=== PATIENT | female | born 1975 | race Caucasian/White ===

== ENCOUNTER 2025-01-29 10:23 | Emergency (ER) | payer OTHER, SELFPAY ==
--- OUTSIDE RECORDS SUMMARY | 2025-01-29 10:32 | XMS_ITS | Patient Health Record ---
Author Organization [facility] Address [address] [place] [address] Care Team Providers Care Errand Runner Name Role Phone Milagros eVga Primary Care Provider [phone] Reason For Referral No Information Problems Problem Type SNOMED Code ICD Code Onset Dates Problem Status W/U Status Risk Notes Problem Depression (151066361) Depression (F32.9) Active confirmed Plan Of Treatment No Information Insurance Providers Payer Name Payer Address Payer Phone Subscriber Number Group Number Insured Name Patient Relationship to Insured Coverage Start Date Coverage End Date [facility] [address] [place] [address] [id number] Regina Medina Self - patient is the insured 2
--- OUTSIDE RECORDS SUMMARY | 2025-01-29 10:32 | XMS_ITS | Clinical Summary ---
Author Organization [facility] Address [address] [place] [phone] Care Team Providers Care Vocational Nursing Instructor Name Role Phone Ese Main MD Unavailable [phone] Bria Willams NP Primary Care Provider [phone] Allergies Active Allergy Reactions Criticality Noted Date Comments Penicillin Unknown 04/22/2024 Penicillin V Unknown 06/26/2023 Reaction in childhood. Unsure of reaction Medications escitalopram (LEXAPRO) 10 mg tablet Take 1 tablet (10 mg total) by mouth daily 04/10/2024 Active multivitamin-min erals-lutein tablet Take by mouth Active Active Problems Problem Noted Date Diagnosed Date Breast cancer screening, high risk patient 04/22 Encounter for screening for malignant neoplasm o f colon 11/07/2023 Chest pain, unspecified type 09/19/2023 Family history of breast cancer 06/26/2023 Encounter for nonprocreative genetic counseling and testing 06/26/2023 Encounter for screening mammogram for breast can cer 06/26/2023 Immunizations Immunization Administration Dates Next Due Influenza, Quadrivalent, Gladys l Culture-based MDCK, Preservative Free, Antibiotic Free, Intramuscular 03/23/2023 Influenza, Quadrivalent, Spl it, Preservative Free, Intramuscular 12/12/2021 Tetanus Toxoid, Unspecified 05/02/2021 Surgical History Surgery Date Site/Laterality Comments SECTION APPENDECTOMY COLONOSCOPY 11/13/2023 UPPER GASTROINTESTINAL ENDOSCOPY 11/13/2023 Medical History Medical History Date Comments Known health problems: none GERD (gastroesophageal reflux disease) Chest pain 09/18/2023 Obesity Family History Medical History Relation Name Comments Lung cancer Father Breast cancer Mother pre-menopausal Relation Name Status Comments Father Maternal Grandfather Maternal Grandmother Mother Paternal Grandfather Paternal Grandmother Social History Tobacco Use Types Packs/Day Years Used Date Smoking Tobacco: Never Smokeless Tobacco: Never AUDIT-C Answer Date Recorded Frequency of Alcohol Consumption Not on file 11/13/2023 Q2: How many drinks containi ng alcohol do you have on a typical day when you are drinking? Patient does not drink Frequency of Binge Drinking Not on file 11/02 Personal Safety Answer Date Recorded Have you ever been in or are you currently in a harmful physical or emotional relationship or is someone making you feel afraid or unsafe? Denies 11/13/2023 Comments No Sex and Gender Information Value Date Recorded Sex Assigned at Not on file Legal Sex Female 3:05 PM BOAT RIGGER Gender Identity Not on file Sexual Orientation Not on file Obstetrics History Para Term AB IAB SAB Ectopic Multiple Livin g Live Births 1 03 04 Date Outcome GA Total Labor Labor/2nd/3rd Weight Sex Type Anes PTL Maty A1 A5 Name Clin Term Last Filed Vital Signs Vital Sign Reading Time Taken Comments Blood Pressure 128/81 06/25/2024 8:10 AM CDT Pulse 68 06/25/2024 8:10 AM CDT Temperature 36.7 C (98 F) 04/22/2024 8:16 AM BOAT RIGGER Respiratory Rate 18 04/22/2024 8:16 AM BOAT RIGGER Oxygen Saturation 96% 04/22/2024 8:16 AM BOAT RIGGER Inhaled Oxygen Concentration - - Weight 139.3 kg (307 lb) 06/25/2024 8:10 AM CDT Height 180.3 cm (5' 11) 06/25/2024 8:10 AM CDT Body Mass Index 42.82 06/25/2024 8:10 AM CDT Plan of Treatment Health Maintenance Due Date Last Done Comments Cervical Cancer Screening 1975 Depression Screening 1975 Hepatitis C Screening 1976 DTaP/Tdap/Td Vaccine (1 - Tdap) 1987 Hepatitis B Screening 1994 Regular Well Visit/Exam 18-64 1994 Covid-19 Vaccine ( season) 2024 03/23/2023, 12/12/2021, 01/20/2021, Additional history exists Influenza Vaccine (#1) 2024 03/23/2023, 2021 Breast Cancer Screening-Mammogram 04/22/2025 04/22/2024, 04/18/2023 Colon Cancer Screening-Colonoscopy 11/12/2033 11/13/2023 Pneumococcal vaccine <65 Aged Out No longer eligible based on patient's age to complete this topic Procedures Procedure Name Priority Date/Time Associated Diagnosis Comments SCREENING MAMMOGRAM BILATERAL W SREE Schedule Routine, Read Routine (OP Routine) 04/22/2024 7:34 AM BOAT RIGGER Encounter for screening mammogram for breast cancer Breast cancer screening by mammogram COLONOSCOPY 11/13/2023 7:30 AM CDT from Last 3 Months or Most Recently Relevant to Health Maintenance Results * Screening Mammogram Bilateral W Sree (04/22/2024 7:34 AM BOAT RIGGER) Anatomical Region Laterality Modality Breast Bilateral Mammography Impressions 04/22/2024 8:16 AM BOAT RIGGER BI-RADS ATLAS category (overall): 1 - Negative There is no mammographic evidence of malignancy. A 1 year screening mammogram is recommended. The patient has been or will be contacted. We recommend annual screening mammography for women at average risk of breast cancer beginning at age 40, based on guidelines of the [employer] (ACR Practice Parameter for the Performance of Screening and Diagnostic Mammography) and [employer]. For women with and elevated risk of breast cancer, please refer to the ACR Practice Parameter for specific screening recommendations. The patient will be entered into a reminder system with a target due date of 1 year for her next screening exam. Narrative 04/22/2024 8:16 AM BOAT RIGGER Screening Mammogram Bilateral W Sree: 04/22/24 The study was acquired using full field digital technology and interpreted from soft copy. 2D digital mammographic views, as well as 3D digital tomosynthesis were performed in the CC and MLO projections. This study was resulted using Computer-Aided Detection (CAD). CLINICAL: Encounter for screening mammogram for breast cancer Breast cancer screening by mammogram. No relevant medical history has been documented for this patient. History of breast cancer in Mother. COMPARISONS: 10/14/2023 MRI Breast Bilateral W WO Contrast 05/22/2023 US Breast Right Limited 05/22/2023 Diagnostic Mammogram Right W Sree 04/18/2023 Screening Mammogram Bilateral W Sree BREAST TISSUE: There are scattered areas of fibroglandular density. FINDINGS: No suspicious masses, suspicious calcifications, or other suspicious findings are seen within either breast. There has been no suspicious change. Ese Main MD IMG MAMMO PROCEDURES Final Result * Colonoscopy (11/13/2023 7:30 AM CDT) Anatomical Region Laterality Modality Other Narrative Procedure Note Reynaldo Cavazos MD - 11/13/2023 7:30 AM CDT [facility] Endoscopy [facility] Patient Name: Emelyn Medina Procedure Date: 11/13/2023 7:30 AM Date of : 1975 Admit Type: Outpatient Age: 48 Gender: Female Note Status: Finalized Attending MD: Reynaldo Cavazos M.D. Procedure Date: 11/13/2023 Procedure: Colonoscopy Indications: Screening for colorectal malignant neoplasm Providers: Reynaldo Cavazos M.D., AMANDO Marte(Anesthesia Staff), Lida Jefferson RN, Selena Rodrigues,Slubber Operator Referring MD: Alvaro Mccord M.D. Medicines: Monitored Anesthesia Care Complications: No immediate complications. Estimated blood loss:None. Estimated Blood Loss: Estimated blood loss: none. Procedure: Pre-Anesthesia Assessment: - Prior to the procedure, a History and Physicalwas performed, and patient medications and allergieswere reviewed. The patient's tolerance of previous anesthesia was also reviewed. The risks andbenefits of the procedure and the sedation options and risks were discussed with the patient. All questions were answered, and informed consent was obtained. Prior Anticoagulants: The patient has taken noanticoagulant or antiplatelet agents. ASA Grade Assessment: II -A patient with mild systemic disease. After reviewing the risks and benefits, the patient was deemed in satisfactory condition to undergo the procedure. - The risks and benefits of the procedure and the sedation options and risks were discussed with the patient. All questions were answered and informed consent was obtained. After I obtained informed consent, the scope was passed under direct vision. Throughout theprocedure, the patient's blood pressure, pulse, and oxygen saturations were monitored continuously. The scopewas passed under direct vision. The Colonoscope was introduced through the anus and advanced to the the cecum, identified by appendiceal orifice andileocecal valve. The colonoscopy was performed without difficulty. The patient tolerated the procedurewell. The quality of the bowel preparation was excellent. The quality of the bowel preparation was evaluated using the BBPS (Tatum Bowel Preparation Scale)with scores of: Right Colon = 3, Transverse Colon = 3and Left Colon = 3 (entire mucosa seen well with no residual staining, small fragments of stool oropaque liquid). The total BBPS score equals 9. Theileocecal valve, appendiceal orifice, and rectum were photographed. The bowel preparation used wasGoLYTELY via extended prep (2 day prep) with split dose instruction on the second day. Findings: Hemorrhoids were found on perianal exam. The lumen of the colon (entire examined portion) was mildlydilated. External hemorrhoids were found during retroflexion. A 2 mm polyp was found in the transverse colon. The polyp wassessile. The polyp was removed with a jumbo cold forceps. Resection andretrieval were complete. Impression: 1) A 2 mm sessile polyp was found in the transverse colon. The polyp was removed with a jumbo cold forceps. Resection and retrieval were complete. 2) Mildly dilated lumen throughout the entireexamined colon. 3) External hemorrhoids. Recommendation: - Discharge patient to home (ambulatory). - Given symptoms of chronic constipation, Irecommend that the patient take Miralax daily titrated to 1-2 BM/day. - Patient has a contact number available for emergencies. The signs and symptoms of potential delayed complications were discussed with thepatient. Return to normal activities tomorrow. Written discharge instructions were provided to thepatient. - Resume previous diet. - Continue present medications. - Await pathology results. - Repeat colonoscopy for surveillance based on pathology results. If the pathology report reveals adenomatous tissue, then repeat the colonoscopy for surveillance in 7 years. If the pathology report reveals serrated adenoma tissue, then repeat the colonoscopy for surveillance in 5 years. If the pathology report is benign, then repeat colonoscopy for screening purposes in 10 years. Procedure Code(s): --- Professional --- 66692, Colonoscopy, flexible; with biopsy, singleor multiple Diagnosis Code(s): --- Professional --- Z12.11, Encounter for screening for malignantneoplasm of colon K64.4, Residual hemorrhoidal skin tags K59.39, Other megacolon CPT copyright 2020 [employer]. All rights reserved. The codes documented in this report are preliminary and upon porter used car lot reviewmay be revised to meet current compliance requirements. Reynaldo Cavazos M.D. 11/13/2023 8:50:59 AM Number of Addenda: 0 Note Initiated On: 11/13/2023 7:30 AM Reynaldo Cavazos MD ENDOSCOPY PROCEDURES Edit ed Result - Final from Last 3 Months or Most Recently Relevant to Health Maintenance Insurance [id number] [place] [id number] [facility] PPO [id number] [facility] HMO Advance Directives For more information, please contact: [phone] * Full Code (Latest Code Status on File) Date Activated Date Inactivated Comments 09/19/2023 2:52 PM 09/20/2023 10:57 PM Care Teams Vocational Nursing Instructor Relationship Specialty Start Date End Date Bria Willams NP [address] [place] [address] PCP - General Nurse Practitioner 10/19/24 Ese Main MD Surgeon Breast Surgery 04/03/23
--- OUTSIDE RECORDS SUMMARY | 2025-01-29 10:32 | XMS_ITS | Patient Health Record ---
Author Organization [facility] Billing Info Address [address] [place] [id number] Support Name Relationship Address Phone Lenin Medina Emergency Contact [address] [place] [phone] Emelyn Medina Guarantor Unknown Allergies Allergen (clinical drug ingredient) Drug/Non Drug Allergy documented on EMR Reaction Allergy Type Onset Date Status Penicillin Unknown Drug Allergy Active Reason For Referral No Information Plan Of Treatment No Information Insurance Providers Payer Name Payer Address Payer Phone Subscriber Number Group Number Insured Name Patient Relationship to Insured Coverage Start Date Coverage End Date [place] P[place] [address] [place], [place] [id number] [phone] [id number] Emelyn Medina Self - patient is the insured Medical (General) History Surgical History Surgery Date(Month/Year) appendix
--- OUTSIDE RECORDS SUMMARY | 2025-01-29 10:32 | XMS_ITS | Encounter Summary ---
Author Organization [facility] Address [address] [place] [address] Phone Care Team Providers Care Chief Guard Name Role Phone Bria Willams NP Primary Care Provider [phone] Ese Main MD Unavailable [phone] Alvaro Mccord MD Primary Care Provider [phone] Bria Willams NP Primary Care Provider [phone] Encounter Details Date Type Department Care Team (Late st Contact Info) Description 04/02/2023 Telephone [facility] Oncology [facility] 7th [address] [place] [address] Lisa Friedman Social History Tobacco Use Types Packs/Day Years Used Date Smoking Tobacco: Never Assessed Personal Safety Answer Date Recorded Getting School Help Needed Not on file 03/22 Comments Unknown Sex and Gender Information Value Date Recorded Sex Assigned at Not on file Legal Sex Female 3: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 [place] [address] PCP - General Family Medicine 04/17/23 10/18/24 Bria Willams NP [address] [place] [address] PCP - General Nurse Practitioner 10/19/24 Ese Main MD [address] [place] [address] Surgeon Breast Surgery 04/03/23 documented as of this encounter
[2025-01-29 10:45] VITALS: BP 124/61; PULSE 79; RESP 18; TEMP 36.7; O2SAT 97
--- NOTE | 2025-01-29 10:57 | ED.URI ---
HPI - URI/Sore Throat General Chief Complaint: Upper Respiratory Infection Stated Complaint: Uri Symptoms Source: patient Mode of arrival: ambulatory Limitations: no limitations History of Present Illness HPI Narrative: this is a 49-year-old female patient who presents to the urgent care today with complaint of 1.5 week history upper respiratory symptoms, sinus congestion, cough, sore throat. Denies fever chills however they state over the last week patient seems to have a more productive cough and fatigue. Patient denies any nausea or vomiting denies any headache or dizziness. According to parents patient has been taking Tylenol for relief and cough cold medications with minimal help. Denies any other distress or concerns. discussed findings on exam, and time and outpatient treatment. Discussed that we will continue with antibiotic and prednisone treatment. The need to continue with [id number] management of symptoms. Answered questions to their satisfaction agreeable plan. Educated patient and parents to increase fluids, rest, cough and cold medication as tolerated, cough drops and vicks vapor rub, take antibiotic as prescribed. prednisone as prescribed. Follow up with your primary MD in the next 3-4 days, return to the urgent care or emergency department if any worrisome sign or symptom. MD elicited complaint: cough, sore throat, rhinorrhea, nasal congestion and sinus pain Onset (ago): week(s) (1.5) Consistency: constant Severity: mild Description of mucous: purulent Able to tolerate fluids by mouth: Yes Exacerbating factors: nothing Relieving factors: nothing Context: sick contacts Associated symptoms: chills, voice changes, myalgias, headache, rhinorrhea, nasal congestion, sore throat and cough Treatments prior to arrival: acetaminophen and cold medicine Related Data Home Medications ?Medication ?Instructions ?Recorded ?Confirmed ?Last Taken ?Type escitalopram oxalate 10 mg tablet mg 01/29/25 Unknown History Allergies Allergy/AdvReac Type Severity Reaction Status Date / Time Penicillins Allergy Mild Unknown Verified 01/29/25 10:50 Review of Systems Review of Systems: All systems reviewed & are unremarkable except as noted in HPI and below Exam Const: General: healthy appearing Nutritional Appearance: well nourished Orientation/consciousness: patient oriented x3 Limitations: no limitations HENMT: Head: normal to inspection Ears: external ears normal Face/Nose/Sinus: Nasal discharge present mucoid Face and sinus: sinus tenderness frontal and maxillary Mouth: Yes Normal oral and palatal mucosa present Teeth and gingiva: dentition normal Throat: posterior oropharynx normal and uvula midline Eyes: Conjunctivae: conjunctivae normal Pupils: Equal, round and reactive pupils present EOM: EOMs intact bilaterally Neck: Neck: normal visual inspection Chest: Chest palpation & inspection: normal inspection of the chest Resp: Effort & Inspection: normal respiratory effort Auscultation: rhonchi upper bilaterally Cardio: Rate: regular rate Rhythm: regular rhythm GI: GI Palp: Yes Soft to palpation Auscultation: normal bowel sounds Back/Spine/Pelvis: Back: no CVA tenderness Skin: General skin exam: normal color Rashes: no rashes Wounds: no wounds Neuro: General: patient oriented x3 Speech: normal speech Gait exam (Neuro): Normal gait present Extrem: General: normal to inspection and no clubbing, cyanosis or edema Psych: Mental Status: mental status grossly normal Affect: normal affect Attitude: cooperative Course Course Emergency Course: this is a 49-year-old female patient who presents to the urgent care today with complaint of 1.5 week history upper respiratory symptoms, sinus congestion, cough, sore throat. Denies fever chills however they state over the last week patient seems to have a more productive cough and fatigue. Patient denies any nausea or vomiting denies any headache or dizziness. According to parents patient has been taking Tylenol for relief and cough cold medications with minimal help. Denies any other distress or concerns. discussed findings on exam, and time and outpatient treatment. Discussed that we will continue with antibiotic and prednisone treatment. The need to continue with [id number]-cydeewr management of symptoms. Answered questions to their satisfaction agreeable plan. Educated patient and parents to increase fluids, rest, cough and cold medication as tolerated, cough drops and vicks vapor rub, take antibiotic as prescribed. prednisone as prescribed. Follow up with your primary MD in the next 3-4 days, return to the urgent care or emergency department if any worrisome sign or symptom. Level of Care: Express Care Visit Vital Signs Vital signs: Vital Signs Temperature 98.0 F 01/29/25 10:45 Pulse Rate 79 01/29/25 10:45 Respiratory Rate 18 01/29/25 10:45 Blood Pressure 124/61 01/29/25 10:45 Pulse Oximetry 97 01/29/25 10:45 Oxygen Delivery Room Air 01/29/25 10:45 Temperature 98.0 F 01/29/25 10:45 Pulse Rate 79 01/29/25 10:45 Respiratory Rate 18 01/29/25 10:45 Blood Pressure 124/61 01/29/25 10:45 Pulse Oximetry 97 01/29/25 10:45 Oxygen Delivery Room Air 01/29/25 10:45 MDM - URI/Sore Throat MDM Narrative Medical decision making narrative: this is a 49-year-old female patient who presents to the urgent care today with complaint of 1.5 week history upper respiratory symptoms, sinus congestion, cough, sore throat. Denies fever chills however they state over the last week patient seems to have a more productive cough and fatigue. Patient denies any nausea or vomiting denies any headache or dizziness. According to parents patient has been taking Tylenol for relief and cough cold medications with minimal help. Denies any other distress or concerns. discussed findings on exam, and time and outpatient treatment. Discussed that we will continue with antibiotic and prednisone treatment. The need to continue with [id number] management of symptoms. Answered questions to their satisfaction agreeable plan. Educated patient and parents to increase fluids, rest, cough and cold medication as tolerated, cough drops and vicks vapor rub, take antibiotic as prescribed. prednisone as prescribed. Follow up with your primary MD in the next 3-4 days, return to the urgent care or emergency department if any worrisome sign or symptom. Differential Diagnosis Differential diagnosis: Likely upper respiratory infection, otitis media, sinusitis, bronchitis and pharyngitis Medical Records Attestation: I reviewed the patient's medical records. Discharge Plan Discharge Clinical Impression: Upper respiratory infection Qualifiers: URI type: unspecified URI Qualified Code(s): J06.9 - Acute upper respiratory infection, unspecified Patient Disposition: Home Condition: Stable Instructions: Antibiotic Form, Upper Respiratory Infection (ED) Additional Instructions: increase fluids rest cough and cold medication as tolerated cough drops and vicks vapor rub take antibiotic as prescribed. prednisone as prescribed. Follow up with your primary MD in the next 3-4 days return to the urgent care or emergency department if any worrisome sign or symptom Patient Language: Zimbabwean Prescriptions: New azithromycin [Zithromax Z-Vasu] 250 mg tablet See Rx Instructions .ROUTE .COMPLEX Qty: 6 0RF Rx Instructions: For 250 mg dose pack: take 500 mg today (day 1), then 250 mg for 4 days (days 2-5) prednisone 20 mg tablet 20 mg PO BID Qty: 10 0RF No Action escitalopram oxalate 10 mg tablet Follow-up/Referrals: UNKNOWN,DOCTOR [Primary Care Provider] Time of Disposition: 11:03
== END 2025-01-29 11:14 | disposition home or self-care (01) ==
PROVIDERS: Emergency Provider Nurse Practitioner Family
DX: J06.9 Acute upper respiratory infection, unspecified (principal)
CPT/HCPCS: 99203; G0463